=== PATIENT | female | born 1995 | race Asian ===

== ENCOUNTER 2017-04-24 16:28 | Emergency (ER) | payer SELFPAY ==
[~2017-04-24] VITALS: Ht 162.6 cm; Wt 63.5 kg
[2017-04-24 16:30] VITALS: BP 112/61
--- NOTE | 2017-04-24 16:46 | PHYS DOC ---
Past Medical History Past Medical History: No Pertinent History Past Surgical History: No Surgical History Alcohol Use: None Drug Use: None Adult General Chief Complaint Chief Complaint: MECHANICAL FALL HPI HPI Patient is a 21 year old female with no significant medical history who presents with right forearm pain, anterior chest wall pain and bilateral shoulder pain after falling yesterday. Patient states she was walking down some when she tripped and fell. She states she fell approximately 2-3 steps. Patient denies any loss of consciousness. Denies hitting her head on the ground. She describes her pain as throbbing and intermittent rated as mild. She states her pain is worse on range of motion and lifting heavy items. Review of Systems Review of Systems Constitutional: Denies fever or chills [] Eyes: Denies change in visual acuity, redness, or eye pain [] HENT: Denies nasal congestion or sore throat [] Respiratory: Denies cough or shortness of breath [] Cardiovascular: Anterior chest wall pain. GI: Denies abdominal pain, nausea, vomiting, bloody stools or diarrhea [] : Denies dysuria or hematuria [] Musculoskeletal: Bilateral shoulder pain, right forearm pain Integument: Denies rash or skin lesions [] Neurologic: Denies headache, focal weakness or sensory changes [] All other systems were reviewed and found to be within normal limits, except as documented in this note. Allergies Allergies Allergies Coded Allergies Type Severity Reaction Last Updated Verified No Known Drug Allergies 04/24/17 No Physical Exam Physical Exam Constitutional: Well developed, well nourished, no acute distress, non-toxic appearance. [] HENT: Normocephalic, atraumatic, bilateral external ears normal, oropharynx moist, no oral exudates, nose normal. [] Eyes: PERRLA, EOMI, conjunctiva normal, no discharge. [] Neck: Normal range of motion, no tenderness, supple, no stridor. [] Cardiovascular:Heart rate regular rhythm, no murmur [] Lungs & Thorax: Bilateral breath sounds clear to auscultation [] Abdomen: Bowel sounds normal, soft, no tenderness, no masses, no pulsatile masses. [] Skin: Warm, dry, no erythema, no rash. [] Back: No tenderness, no CVA tenderness. [] Extremities: Slight bruising noted on the right lateral wrist. No scaphoid tenderness. Full range of motion to bilateral upper extremities. Adequate radial medial and was not sensation to bilateral upper extremities. +2 bilateral radial pulses. Cap refill less than 2 seconds bilateral upper extremities. Neurologic: Alert and oriented X 3, normal motor function, normal sensory function, no focal deficits noted. [] Psychologic: Affect normal, judgement normal, mood normal. [] Current Patient Data Vital Signs Vital Signs Date Time Temp Pulse Resp B/P (MAP) Pulse Ox O2 Delivery O2 Flow Rate FiO2 04/24/17 16:30 97.9 74 16 98 Room Air 97.9 Lab Values Laboratory Tests Test 04/24/17 16:50 POC Urine HCG, Qualitative Hcg negative (Negative) EKG EKG [] Radiology/Procedures Radiology/Procedures [] Course & Med Decision Making Course & Med Decision Making Pertinent Labs and Imaging studies reviewed. (See chart for details) Patient is in the ED with multiple pain complaints after falling down yesterday. She has anterior chest wall pain, she did not land on her chest, bilateral shoulder pain, bilateral upper extremity pain. Her pain is musculoskeletal. Chest x-ray and right F/A x-rays interpreted by Dr. Johnson negative for any acute findings. Patient will be discharged with cyclobenzaprine and naproxen. Velcro splint applied to the right wrist by the Loan Review Analyst, neurovascular exam is intact. Ice elevation encouraged. Follow-up with PCP orthopedic doctor in one week if pain continues. Dragon Disclaimer Dragon Disclaimer This electronic medical record was generated, in whole or in part, using a voice recognition dictation system. Departure Departure Impression: Primary Impression: Fall down steps Additional Impression: Musculoskeletal pain Disposition: HOME, SELF-CARE Condition: STABLE Referrals: NON,STAFF (PCP) DOLORES MOY MD follow up in one week Patient Instructions: Fall Prevention and Home Safety, Musculoskeletal Pain Additional Instructions: You were seen with musculoskeletal pain after falling. Apply ice to the affected areas. Take the prescribed medicines as needed for pain. Follow-up with your primary care doctor or the provided orthopedic doctor in one week. Scripts Cyclobenzaprine Hcl (CYCLOBENZAPRINE HCL) 10 Mg Tablet 1 TAB PO TID, #30 TAB Prov: LEONEL GUPTA APRN 04/24/17 Naproxen (NAPROXEN) 375 Mg Tablet 1 TAB PO BID, #20 TAB 0 Refills Prov: JESSICAUNGALEONEL APRN 04/24/17 Problem Qualifiers Primary Impression: Fall down steps Encounter type: initial encounter Qualified Codes: W10.8XXA - Fall (on) ( from) other stairs and steps, initial encounter LEONEL GUPTA APRN Apr 24, 2017 16:46
[2017-04-24] MEDS ORDERED: NAPR-695 PO (17:37)
[2017-04-24] MEDS ORDERED: CYCL10TA2 PO (17:37)
--- NOTE | 2017-04-25 08:12 | RAD ---
Chest, 2 views, 04/24/2017: History: Fall, pain The heart size and pulmonary vascularity are normal. The lungs are clear. There is no evidence of pleural fluid or pneumothorax. IMPRESSION: No acute cardiopulmonary abnormality is detected. Right forearm, 2 views, 04/24/2017: No fracture or bony abnormality is detected. The soft tissues are unremarkable. IMPRESSION: No significant abnormality is detected.
== END 2017-04-24 17:45 | disposition home or self-care (01) ==
LOC: ER 16:28
DX: M79.1 Myalgia (principal); M79.631 Pain in right forearm; R07.89 Other chest pain; M25.511 Pain in right shoulder; W01.0XXA Fall on same level from slipping, tripping and stumbling without subsequent striking against object, initial encounter; Y93.01 Activity, walking, marching and hiking; Y99.8 Other external cause status; Y92.89 Other specified places as the place of occurrence of the external cause
CPT/HCPCS: 29125; 71020; 73090; 81025; 99284